=== PATIENT | female | born 1960 | race Two or more races ===

== ENCOUNTER 2022-02-05 07:25 | Inpatient (IN) | payer BC ==
[2022-01-29 16:22] LABS: BASOPHILS # (AUTO) 0.1 X10'3 (0-0.2); BASOPHILS % (AUTO) 0.9 % (0-1); EOSINOPHILS # (AUTO) 0.3 X10'3 (0-0.9); EOSINOPHILS % (AUTO) 5.7 % (0-6); LYMPHOCYTES # (AUTO) 0.7 X10'3 (1.1-4.8); LYMPHOCYTES % (AUTO) 12.4 % (21-51); MEAN CORPUSCULAR HEMOGLOBIN 34.4 PG (27.0-31.0); MEAN CORPUSCULAR HGB CONC 35.2 g/dL (33.0-36.5); MEAN CORPUSCULAR VOLUME 97.7 FL (78-98); MEAN PLATELET VOLUME 7.7 FL (7.4-10.4); MONOCYTES # (AUTO) 0.4 X10'3 (0-0.9); MONOCYTES % (AUTO) 7.3 % (2-12); NEUTROPHILS # (AUTO) 4.2 X10'3 (1.8-7.7); NEUTROPHILS % (AUTO) 73.7 % (42-75); PRE OP HEMATOCRIT 34.1 % (35.0-45.0); PRE OP PLATELET COUNT 225 X10'3 (140-440); RED BLOOD COUNT 3.49 X10'6 (4.20-5.60); RED CELL DISTRIBUTION WIDTH 14.7 % (11.5-14.5)
[2022-01-29 16:33] LABS: ALBUMIN 4.2 G/DL (3.4-5.0); ALBUMIN/GLOBULIN RATIO 1.3 (1.1-1.5); ALKALINE PHOSPHATASE 77 IU/L (46-116); BLOOD UREA NITROGEN 19 MG/DL (7-18); BUN/CREATININE RATIO 27.5 (6.6-38.0); CALCIUM 9.5 MG/DL (8.5-10.1); CHLORIDE 101 MMOL/L (99-107); CREATININE 0.69 MG/DL (0.40-0.90); PRE OP ALT 27 U/L (30-65); PRE OP ANION GAP 10 (8-16); PRE OP AST 34 U/L (10-37); PRE OP BILIRUB, TOTAL 0.4 MG/DL (0.0-1.0); PRE OP GLUCOSE 92 MG/DL (70-104); PRE OP POTASSIUM 4.1 MMOL/L (3.4-5.1); PRE OP SODIUM 137 MMOL/L (135-145); TOTAL CARBON DIOXIDE 25.7 MMOL/L (24-32); TOTAL PROTEIN 7.4 G/DL (6.4-8.2); eGFR 86 ML/MIN
[2022-01-29 16:48] LABS: HEMOGLOBIN A1C 5.8 % (4.5-6.2)
[2022-02-05] VITALS (23 sets, daily range): BP systolic 109–161; BP diastolic 55–81
[~2022-02-05] VITALS: Ht 157.5 cm; Wt 64.0 kg
[~2022-02-05 07:25] MED LIST: ALBU6.7H9 INH; ATOR40TA71 PO; FLUT1DIS20 INH; METF-436 PO; ceFOXitin 2GM-NS 100mL ADDvant 100 ML IV ONE; famotidine 20mg tablet PO ONE; heparin, porcine 5000 units/ml vial SQ ONE; metroNIDAZOLE-Flagyl 500mg/NS 100ML IVPB IV STA; ringers solution, lacted 1,000 ML IV SCH
[2022-02-05] MEDS ORDERED: insulin regular, human U-100 3ml vial - multi-dose SQ ONE (09:05)
[2022-02-05] MEDS ORDERED: insulin regular, human U-100 3ml vial - multi-dose IV ONE (09:05)
[2022-02-05] MEDS ORDERED: LIDOcaine 1% W/epiNEPHrine 1:100,000 20ml vial ONE (09:17)
[2022-02-05] MEDS ORDERED: BUPIVAcaine 0.5% inj/PF 30 ML ONE (09:17)
[2022-02-05] MEDS ORDERED: tobramycin 40mg/ml inj ONE (09:17)
[2022-02-05] MEDS ORDERED: povidone-iodine 10% ointment 1 APPLIC APPLIC TP ONE (09:17)
[2022-02-05] MEDS ORDERED: LIDOcaine 1% (10mg/ml)w/preservative inj. 20ml MDV ONE (09:38)
[2022-02-05] MEDS ORDERED: sevoflurane 250ml liquid IH ONE (09:38)
[2022-02-05] MEDS ORDERED: midazolam 1 mg/ML 2ml injection ONE (09:41)
[2022-02-05] MEDS ORDERED: fentaNYL /PF 50mcg/ml 5ml ampule ONE (09:42)
[2022-02-05] MEDS ORDERED: INDOCYANINE GREEN 25 MG/10 ML VIAL IV ONE (11:26)
[2022-02-05] MEDS ORDERED: BUPIVAcaine 0.5% inj/PF 30 ml vial IJ ONE (11:44)
[2022-02-05] MEDS ORDERED: labetalol 20mg/4ml (5mg/ml) syringe IV PRN (12:00)
[2022-02-05] MEDS ORDERED: acetaminophen 1,000mg/100ml IV 100 ML IV PRN (12:00)
[2022-02-05] MEDS ORDERED: hydrALAZINE 20mg/ml inj. IV PRN ×2 (12:00→16:15)
[2022-02-05] MEDS ORDERED: proCHLORperazine 10 MG/2 ml inj IV PRN (12:00)
[2022-02-05] MEDS ORDERED: meperidine/PF 25mg/ml syringe IV PRN ×3 (12:00)
[2022-02-05] MEDS ORDERED: morphine 2 MG/ML inj. syringe IV PRN (12:00)
[2022-02-05] MEDS ORDERED: ringers solution, lacted 1,000 ML IV SCH (12:00)
[2022-02-05] MEDS ORDERED: ondansetron/PF 4mg/2ml inj IV PRN ×2 (12:00→14:50)
[2022-02-05] MEDS ORDERED: morphine 4 MG/ML inj SYRINge IV PRN (12:00)
[2022-02-05] MEDS ORDERED: ondansetron/PF 4mg/2ml inj ONE (12:24)
[2022-02-05] MEDS ORDERED: dexamethasone sod phosphate 4mg/ml inj. ONE (12:24)
[2022-02-05] MEDS ORDERED: rocuronium 10mg/ml inj IV ONE ×2 (12:24)
[2022-02-05] MEDS ORDERED: propofol inj 20 ML IV ONE (12:24)
[2022-02-05] MEDS ORDERED: morphine 10mg/ml inj. ONE (14:17)
[2022-02-05] MEDS ORDERED: sugammadex 200mg/2ml injection IV ONE (14:18)
--- NOTE | 2022-02-05 14:41 | NUR ---
Received from OR via HOSPITAL BED, accompanied by Anesthesiologist DR. BARAJAS and report given by Anesthesiolgist. PATIENT HAS ORAL ARIWAY IN WITH 10L MASK O2. SYSTOLIC 161, MD AWARE. PATIENT BRADYPNEA WITH ORAL AIRWAY IN, SATURATIONS 100%. NONVERBAL 0/10 PAIN. ILEOSOTMY AND MANNY'S VISUALIZED WITH NURSE. NO ISSUES NOTED.20G PIV TO LEFT AC WITH LR RUNNING AT 100, ASKED TO BE DECREASED BY DR. PEREZ TO 75ML/HR.
--- NOTE | 2022-02-05 14:45 | NUR ---
ORAL AIRWAY REMOVED
[2022-02-05] MEDS ORDERED: DEXTROSE 15 GM of carb/4 tabs (each vial/BOTTLE has 4 tablets) PO PRN ×2 (14:50)
[2022-02-05] MEDS ORDERED: naloxone 0.4 mg/ml inj IV PRN ×3 (14:50→15:00)
[2022-02-05] MEDS ORDERED: dextrose 50%-water 50ml dispensing syringe IV PRN ×2 (14:50)
[2022-02-05] MEDS ORDERED: insulin Lispro (HumaLOG) vial - multi-dose SQ SCH (14:50)
[2022-02-05] MEDS ORDERED: glucagon, human recombinant 1mg kit SUBCUT PRN (14:50)
[2022-02-05] MEDS ORDERED: MESSAGE TO PHARMACY PO ONE (14:50)
[2022-02-05] MEDS ORDERED: normal saline 1000ml 1,000 ML IV SCH (15:00)
[2022-02-05] MEDS ORDERED: morphine/NS PCA 1mg/ml 50ml 50 ML IV SCH (15:00)
[2022-02-05] MEDS: morphine/NS PCA 1mg/ml 50ml 50 ML IV SCH ×4 (16:15→23:00)
[2022-02-05] MEDS ORDERED: albuterol 2.5 MG/3 ML nebule NEB PRN (16:20)
[2022-02-05] MEDS ORDERED: ipratropium/albuterol 3ml nebule NEB PRN (16:20)
--- NOTE | 2022-02-05 16:25 | NUR ---
REPORT GIVEN TO VESNA RN, RECEIVING NURSE
--- NOTE | 2022-02-05 16:27 | NUR ---
Received report from Georgie in Recovery and had the opportunity to ask questions. Patient will be brought to the floor shortly.
[2022-02-05] MEDS: albuterol 2.5 MG/3 ML nebule NEB SCH ×2 (16:29→20:21)
--- NOTE | 2022-02-05 16:41 | NUR ---
PATIENT STATES 5/10 PAIN BUT COMFORTABLE, HAS MORPHINE PUMP RUNNING AT 1MG DEMAND DOSE ONLY Q10MIN. MANNY DRAINS AND ILEOSTOMY VISUALIZED WITH NURSE. 2L NC ATTACHED TO WALL. DENIES NAUSEA, TOLERATING CLEAR LIQUIDS. SLEEPY BUT RESPONDS TO VERBAL STIMULI. PATIENT TRANSFERRED TO ROOM 4024B. , JIM, AT BEDSIDE STATES SHE HAS NO BELONGINGS IN THE HOSPITAL, HE TOOK THEM HOME.
[2022-02-05] MEDS ORDERED: morphine/NS 1 mg/ml 50ml CADD 50 ML IV SCH (17:00)
--- NOTE | 2022-02-05 17:43 | NUR ---
Antibiotics that were due at 1600 not on the floor yet. (Patient did not come to the floor until 1705). Called pharmacy and they will bring them up shortly.
--- NOTE | 2022-02-05 18:37 | NUR ---
Problems reprioritized. Patient report given, questions answered & plan of care reviewed with GABBY Qureshi.
[2022-02-05] MEDS: potassium CL 20mEq in D5-1/2NS 1,000 ML IV SCH (18:48)
[2022-02-05] MEDS: metroNIDAZOLE-Flagyl 500mg/NS 100 ML IV SCH (18:49)
[2022-02-05] MEDS: ceFOXitin inj 1,000 MG in normal saline 100ml IV soln 100 ML IV SCH (20:40)
[2022-02-05] MEDS: heparin, porcine 5000 units/ml vial SQ SCH (20:42)
[2022-02-06] MEDS: metroNIDAZOLE-Flagyl 500mg/NS 100 ML IV SCH ×3 (00:09→15:33)
[2022-02-06] MEDS: ceFOXitin inj 1,000 MG in normal saline 100ml IV soln 100 ML IV SCH (00:09)
[2022-02-06] MEDS: morphine/NS PCA 1mg/ml 50ml 50 ML IV SCH ×12 (01:00→23:00)
[2022-02-06 02:00] VITALS: BP 109/52
[2022-02-06] MEDS: potassium CL 20mEq in D5-1/2NS 1,000 ML IV SCH ×2 (04:10→12:15)
--- NOTE | 2022-02-06 05:35 | NUR ---
FC removed with no issues. placed patient in sitting position. She is feeling gassy/bloated. explained that she needs to get up and walk as much as possible to clear this up. Ivy, GABBY relief nurse will walk patient this morning before AM shift arrives.
--- NOTE | 2022-02-06 06:00 | NUR ---
Attempted to ambulate patient per pt's RN request but pt. experiencing dizziness at this time. Reported concern to Kiera rubio RN. Addendum: 02/06/22 at 0622 by Ivy Enamorado RN Amended: Links added.
--- NOTE | 2022-02-06 06:03 | NUR ---
Problems reprioritized. Patient report given, questions answered & plan of care reviewed with GABBY Moore.
[2022-02-06 06:18] LABS: BASOPHILS % (AUTO) 0.1 % (0-1); EOSINOPHILS % (AUTO) 0.1 % (0-6); HEMATOCRIT 32.5 % (35.0-45.0); HEMOGLOBIN 11.1 g/dl (12.0-16.0); LYMPHOCYTES # (AUTO) 0.4 X10'3 (1.1-4.8); LYMPHOCYTES % (AUTO) 5.7 % (21-51); MEAN CORPUSCULAR HEMOGLOBIN 34.1 PG (27.0-31.0); MEAN CORPUSCULAR HGB CONC 34.3 g/dL (33.0-36.5); MEAN CORPUSCULAR VOLUME 99.4 FL (78-98); MEAN PLATELET VOLUME 7.9 FL (7.4-10.4); MONOCYTES # (AUTO) 0.5 X10'3 (0-0.9); MONOCYTES % (AUTO) 7.4 % (2-12); NEUTROPHILS # (AUTO) 5.8 X10'3 (1.8-7.7); NEUTROPHILS % (AUTO) 86.7 % (42-75); PLATELET COUNT 212 X10'3 (140-440); RED BLOOD COUNT 3.27 X10'6 (4.20-5.60); RED CELL DISTRIBUTION WIDTH 14.2 % (11.5-14.5); WHITE BLOOD COUNT 6.7 X10'3 (4.5-11.0)
[2022-02-06 06:21] LABS: ALBUMIN 3.2 G/DL (3.4-5.0); ANION GAP 8 (8-16); BLOOD UREA NITROGEN 6 MG/DL (7-18); BUN/CREATININE RATIO 10.7 (6.6-38.0); CALCIUM 8.2 MG/DL (8.5-10.1); CHLORIDE 105 MMOL/L (99-107); CREATININE 0.56 MG/DL (0.40-0.90); GLUCOSE 148 MG/DL (70-104); POTASSIUM 3.7 MMOL/L (3.5-5.1); SODIUM 142 MMOL/L (135-145); TOTAL CARBON DIOXIDE 29.1 MMOL/L (24-32); eGFR > 90 ML/MIN
--- NOTE | 2022-02-06 06:38 | NUR ---
Patient in room ORTHO 4024. I have received report from GABBY Qureshi and had the opportunity to ask questions and assume patient care.
[2022-02-06 07:04] VITALS: BP 106/51
[2022-02-06] MEDS: heparin, porcine 5000 units/ml vial SQ SCH ×2 (07:11→20:03)
[2022-02-06] MEDS: albuterol 2.5 MG/3 ML nebule NEB SCH ×4 (07:44→20:38)
[2022-02-06] MEDS: atorvastatin 20mg tablet PO SCH (08:13)
[2022-02-06] MEDS: budesonide 0.5mg/2ml UD nebule IH SCH ×2 (10:10→20:38)
[2022-02-06] MEDS: acetaminophen 1,000mg/100ml IV 100 ML IV SCH ×2 (14:54→20:03)
--- NOTE | 2022-02-06 15:07 | NUR ---
Dr. Denise notified regarding patient has not voided s/p dc of amezquita catheter. Received orders to straight cath if bladder scan shows more than 500ml. Bladder scan shows 359ml and patient denies pain or discomfort or urge to void. Will continue to monitor.
--- NOTE | 2022-02-06 15:55 | NUR ---
[facility] assessment for 61 year old female pt admitted post operatively s/p LAR w/ anastomosis, diverting ileostomy and appendectomy for rectal cancer. Arrived in room pt is sleepy, she agrees to have receive education on ostomy care. is Kinyarwanda speaking nad is fluent in Luxem[place]ish. She has stoma to her RLQ measures 38mm outside of bag, color is dark pink, moist os centered and there is small green liquid effluent in pouch and noted to have some air which was released and demonstrated to spouse on how to do. She has 2 MANNY drains to R abdomen and lap sites. Skin otherwise intact. Education w/ demonstration and handouts with on ostomy supplies, how to empty, clean, open to proper size, and he demonstrated how to place an ostomy pouch on teaching stoma. Provided him with handouts on ileostomy care, to go kit list and rationale as well as how/when to use stoma powder for crusting as well as frequency of changes. Also will fax [employer] secure start form. with return verbal and demonstration. Will see her again on Wednesday if still in house for continued education and change of pouch. Addendum: 02/06/22 at 1558 by Gabbi Whitfield RN Amended: Links added.
--- NOTE | 2022-02-06 15:59 | NUR ---
Patient still no void and denies bladder pain or discomfort of urge to void. Bladder scan shows 450ml. Will continue to monitor.
[2022-02-06] MEDS: ketorolac tromethamine 15mg/ml inj. IV PRN (16:44)
--- NOTE | 2022-02-06 17:00 | NUR ---
Patient c/o bladder pain and discomfort and unable to void. 987ml on bladder scan. Patient was unable to void. Straight cath as ordered. Return 900ml of clear yellow urine then clamped off 5mins and unclamped again and 300ml more of urine drained for a total of 1200ml straight cath. Patient stated felt immediate pain and discomfort relief. Patient tolerated well.
--- NOTE | 2022-02-06 17:30 | NUR ---
PAGER ID: [phone] MESSAGE: [id number]- Nery Whiting- c/o indigestion. ok to order Maalox? Also c/o congestion, runny nose and normally takes allergy pill but cannot remember name or dose. - Adrian [phone]
[2022-02-06 18:00] VITALS: BP 117/43
[2022-02-06] MEDS ORDERED: mag hydrox/Alum hydrox/simeth 30ml oral suspension PO PRN (18:00)
[2022-02-06] MEDS: PCA WASTE DOCUMENTATION MC SCH (18:09)
--- NOTE | 2022-02-06 18:11 | NUR ---
Problems reprioritized. Patient report given, questions answered & plan of care reviewed with GABBY Qureshi.
[2022-02-06] MEDS: cetirizine 10mg tablet PO SCH (20:03)
--- NOTE | 2022-02-06 21:33 | NUR ---
called night hospitalist to ask to dc fluids containing D5, he ordered to cut rate in half. Addendum: 02/06/22 at 2135 by Kiera Salas RN because patient is not eating and her BS continues to increase.
[2022-02-06 22:00] VITALS: BP 101/44
[2022-02-07] MEDS: morphine/NS PCA 1mg/ml 50ml 50 ML IV SCH ×6 (01:00→11:00)
[2022-02-07] MEDS: acetaminophen 1,000mg/100ml IV 100 ML IV SCH ×2 (02:20→10:17)
[2022-02-07] MEDS: potassium CL 20mEq in D5-1/2NS 1,000 ML IV SCH (02:24)
[2022-02-07 05:57] LABS: BASOPHILS % (AUTO) 0.3 % (0-1); EOSINOPHILS # (AUTO) 0.3 X10'3 (0-0.9); EOSINOPHILS % (AUTO) 4.4 % (0-6); HEMATOCRIT 30.5 % (35.0-45.0); HEMOGLOBIN 10.5 g/dl (12.0-16.0); LYMPHOCYTES # (AUTO) 0.4 X10'3 (1.1-4.8); MEAN CORPUSCULAR HEMOGLOBIN 33.7 PG (27.0-31.0); MEAN CORPUSCULAR HGB CONC 34.4 g/dL (33.0-36.5); MEAN CORPUSCULAR VOLUME 98.1 FL (78-98); MEAN PLATELET VOLUME 8.4 FL (7.4-10.4); MONOCYTES # (AUTO) 0.4 X10'3 (0-0.9); MONOCYTES % (AUTO) 6.6 % (2-12); NEUTROPHILS # (AUTO) 4.8 X10'3 (1.8-7.7); NEUTROPHILS % (AUTO) 81.7 % (42-75); PLATELET COUNT 198 X10'3 (140-440); RED BLOOD COUNT 3.11 X10'6 (4.20-5.60); RED CELL DISTRIBUTION WIDTH 14.3 % (11.5-14.5); WHITE BLOOD COUNT 5.9 X10'3 (4.5-11.0)
--- NOTE | 2022-02-07 06:00 | NUR ---
Problems reprioritized. Patient report given, questions answered & plan of care reviewed with GABBY Moore.
[2022-02-07 06:11] LABS: ALBUMIN 2.8 G/DL (3.4-5.0); ANION GAP 5 (8-16); BLOOD UREA NITROGEN 4 MG/DL (7-18); BUN/CREATININE RATIO 6.3 (6.6-38.0); CALCIUM 8.2 MG/DL (8.5-10.1); CHLORIDE 108 MMOL/L (99-107); CREATININE 0.64 MG/DL (0.40-0.90); GLUCOSE 128 MG/DL (70-104); POTASSIUM 3.5 MMOL/L (3.5-5.1); SODIUM 142 MMOL/L (135-145); TOTAL CARBON DIOXIDE 28.9 MMOL/L (24-32); eGFR > 90 ML/MIN
--- NOTE | 2022-02-07 06:23 | NUR ---
Patient in room ORTHO 4024. I have received report from GABBY Qureshi and had the opportunity to ask questions and assume patient care.
[2022-02-07 06:40] VITALS: BP 102/36
[2022-02-07] MEDS: cetirizine 10mg tablet PO SCH (07:18)
[2022-02-07] MEDS: atorvastatin 20mg tablet PO SCH (07:19)
[2022-02-07] MEDS: heparin, porcine 5000 units/ml vial SQ SCH ×2 (07:19→20:05)
[2022-02-07] MEDS: budesonide 0.5mg/2ml UD nebule IH SCH ×2 (07:41→20:43)
[2022-02-07] MEDS: albuterol 2.5 MG/3 ML nebule NEB SCH ×4 (07:41→20:43)
[2022-02-07 11:14] VITALS: BP 94/37
[2022-02-07] MEDS: ketorolac tromethamine 15mg/ml inj. IV PRN (13:59)
[2022-02-07] MEDS: PCA WASTE DOCUMENTATION MC SCH (14:39)
[2022-02-07 18:00] VITALS: BP 89/48
--- NOTE | 2022-02-07 18:11 | NUR ---
Problems reprioritized. Patient report given, questions answered & plan of care reviewed with GABBY Qureshi.
[2022-02-07] MEDS: HYDROcodone/acetaminophen 5mg/325mg tablet PO PRN (20:40)
[2022-02-07 22:00] VITALS: BP 119/59
[2022-02-08] MEDS: HYDROcodone/acetaminophen 5mg/325mg tablet PO PRN ×2 (02:18→11:13)
[2022-02-08 06:08] LABS: BASOPHILS % (AUTO) 0.3 % (0-1); EOSINOPHILS # (AUTO) 0.4 X10'3 (0-0.9); EOSINOPHILS % (AUTO) 8.5 % (0-6); HEMOGLOBIN 11.2 g/dl (12.0-16.0); LYMPHOCYTES # (AUTO) 0.4 X10'3 (1.1-4.8); LYMPHOCYTES % (AUTO) 7.6 % (21-51); MEAN CORPUSCULAR HEMOGLOBIN 33.8 PG (27.0-31.0); MEAN CORPUSCULAR VOLUME 99.2 FL (78-98); MEAN PLATELET VOLUME 8.2 FL (7.4-10.4); MONOCYTES # (AUTO) 0.3 X10'3 (0-0.9); MONOCYTES % (AUTO) 6.5 % (2-12); NEUTROPHILS % (AUTO) 77.1 % (42-75); PLATELET COUNT 210 X10'3 (140-440); RED BLOOD COUNT 3.33 X10'6 (4.20-5.60); RED CELL DISTRIBUTION WIDTH 13.9 % (11.5-14.5); WHITE BLOOD COUNT 5.2 X10'3 (4.5-11.0)
[2022-02-08 06:18] LABS: ANION GAP 9 (8-16); BLOOD UREA NITROGEN 5 MG/DL (7-18); CALCIUM 8.7 MG/DL (8.5-10.1); CHLORIDE 110 MMOL/L (99-107); GLUCOSE 127 MG/DL (70-104); POTASSIUM 3.6 MMOL/L (3.5-5.1); SODIUM 146 MMOL/L (135-145); TOTAL CARBON DIOXIDE 26.8 MMOL/L (24-32); eGFR > 90 ML/MIN
--- NOTE | 2022-02-08 06:21 | NUR ---
Problems reprioritized. Patient report given, questions answered & plan of care reviewed with GABBY Kulkarni.
[2022-02-08 06:35] VITALS: BP 102/46
[2022-02-08] MEDS: budesonide 0.5mg/2ml UD nebule IH SCH (08:30)
[2022-02-08] MEDS: albuterol 2.5 MG/3 ML nebule NEB SCH (08:30)
[2022-02-08] MEDS: cetirizine 10mg tablet PO SCH (08:57)
[2022-02-08] MEDS: atorvastatin 20mg tablet PO SCH (08:57)
[2022-02-08] MEDS: heparin, porcine 5000 units/ml vial SQ SCH (08:58)
[2022-02-08] MEDS ORDERED: HYDR-3964 PO ×3 (10:49→12:34)
--- NOTE | 2022-02-08 12:07 | NUR ---
Patient discharged to home via wheelchair to private vehicle. This RN changed patients ileostomy bag prior to discharge and educated both spouse and daughter during process. Patient was sent with two extra bags, ostomy powder and paste and canisters for emptying. All discharge instructions given to patient and spouse and daughter which included all ostomy care, follow up and low fiber diet. Education given on ostomy care and low fiber diet. Patient and family members expressed understanding of all instructions given to them. 20 gauge iv removed from left ac cannula intact no s/s of phlebitis.
--- NOTE | 2022-02-08 12:23 | NUR ---
PAGER ID: [phone] MESSAGE: [phone], Johanne daughter just went to pharmacy ([facility] to [facility] and they are closed. Is there any way it can get sent to [facility] in [place]? rae [phone]
== END 2022-02-08 12:07 | disposition home health service (06) | DRG 330 ==
LOC: PAS IN 07:25 → ORTHO 4S 17:00
PROVIDERS: ADMIT Colon & Rectal Surgery; ATTEND Colon & Rectal Surgery
PROC: 0DTN4ZZ Resection of Sigmoid Colon, Percutaneous Endoscopic Approach (ICD-10-PCS; 2022-02-05)
PROC: 0DTJ4ZZ Resection of Appendix, Percutaneous Endoscopic Approach (ICD-10-PCS; 2022-02-05)
PROC: 0D1B4Z4 Bypass Ileum to Cutaneous, Percutaneous Endoscopic Approach (ICD-10-PCS; 2022-02-05)
PROC: 0DTP4ZZ Resection of Rectum, Percutaneous Endoscopic Approach (ICD-10-PCS; principal; 2022-02-05 09:38)
DX: C20 Malignant neoplasm of rectum (principal); E87.0 Hyperosmolality and hypernatremia; E11.9 Type 2 diabetes mellitus without complications; E78.5 Hyperlipidemia, unspecified; E78.00 Pure hypercholesterolemia, unspecified; D64.9 Anemia, unspecified; I10 Essential (primary) hypertension; J45.909 Unspecified asthma, uncomplicated; Z79.51 Long term (current) use of inhaled steroids; Z79.84 Long term (current) use of oral hypoglycemic drugs; Z83.3 Family history of diabetes mellitus; Z90.710 Acquired absence of both cervix and uterus; Z88.8 Allergy status to other drugs, medicaments and biological substances; Z79.899 Other long term (current) drug therapy
CPT/HCPCS: Z7506; Z7508; 36415; 71046; 80048; 80053; 82948; 83036; 85025; 86885; 86900; 86901; 87081; 93005; 94640; 94760; A4355; A4357; A4371; A4402; A4421; A4615; A4618; A6258; A6402; A6449; A7000; C1758; G0378; J0131; J0694; J1100; J1644; J1815; J1885; J2175; J2250; J2270; J2274; J2405; J2704; J3010; J3260; J3480; J3490; J7120; S0020

== ENCOUNTER 2022-07-06 05:43 | Inpatient (IN) | payer BC ==
[2022-07-01 11:31] LABS: MEAN PLATELET VOLUME 7.1 FL (7.4-10.4); PRE OP PLATELET COUNT 263 X10'3 (140-440)
[2022-07-01 11:32] LABS: BASOPHILS % (AUTO) 0.8 % (0-1); EOSINOPHILS # (AUTO) 0.3 X10'3 (0-0.9); LYMPHOCYTES # (AUTO) 0.5 X10'3 (1.1-4.8); LYMPHOCYTES % (AUTO) 8.9 % (21-51); MEAN CORPUSCULAR HEMOGLOBIN 35.7 PG (27.0-31.0); MEAN CORPUSCULAR HGB CONC 34.4 g/dL (33.0-36.5); MEAN CORPUSCULAR VOLUME 103.8 FL (78-98); MONOCYTES # (AUTO) 0.3 X10'3 (0-0.9); NEUTROPHILS # (AUTO) 4.5 X10'3 (1.8-7.7); NEUTROPHILS % (AUTO) 79.3 % (42-75); PRE OP HEMATOCRIT 31.5 % (35.0-45.0); RED BLOOD COUNT 3.04 X10'6 (4.20-5.60)
[2022-07-01 11:43] LABS: ALBUMIN 4.2 G/DL (3.4-5.0); ALBUMIN/GLOBULIN RATIO 1.2 (1.1-1.5); ALKALINE PHOSPHATASE 72 IU/L (46-116); BLOOD UREA NITROGEN 20 MG/DL (7-18); BUN/CREATININE RATIO 19.2 (6.6-38.0); CALCIUM 10.2 MG/DL (8.5-10.1); CHLORIDE 107 MMOL/L (99-107); CREATININE 1.04 MG/DL (0.40-0.90); PRE OP ALT 22 U/L (30-65); PRE OP ANION GAP 8 (8-16); PRE OP AST 21 U/L (10-37); PRE OP BILIRUB, TOTAL 0.4 MG/DL (0.0-1.0); PRE OP GLUCOSE 101 MG/DL (70-104); PRE OP POTASSIUM 3.7 MMOL/L (3.4-5.1); PRE OP SODIUM 141 MMOL/L (135-145); TOTAL CARBON DIOXIDE 26.4 MMOL/L (24-32); TOTAL PROTEIN 7.7 G/DL (6.4-8.2); eGFR 54 ML/MIN
[2022-07-01 11:47] LABS: PRE OP HEMOGLOBIN 10.8 g/dL (12.0-16.0)
[2022-07-06] VITALS (28 sets, daily range): BP systolic 92–166; BP diastolic 45–83
[~2022-07-06] VITALS: Ht 165.1 cm; Wt 56.2 kg
[~2022-07-06 05:43] MED LIST changes: +ALBU6.7H14 INH; -ALBU6.7H9 INH; -FLUT1DIS20 INH; +FLUT1DIS20 PO; +MALTODEXTRIN/FRUCTOSE 0.68 KCAL/ML LIQUID 296ML BOTTLE PO ONE; -METF-436 PO; +METF-438 PO; +metroNIDAZOLE-Flagyl 500mg/NS 100ML IVPB IV ONE; -metroNIDAZOLE-Flagyl 500mg/NS 100ML IVPB IV STA
[2022-07-06] MEDS ORDERED: LIDOCAINE 1%/EPI 1:100,000 inj. 10 ML multi-dose vial ONE ×2 (06:48→08:01)
[2022-07-06] MEDS ORDERED: BUPIVAcaine/PF 2.5mg/ml (0.25%) 10ml vial ONE (06:49)
[2022-07-06] MEDS ORDERED: tobramycin 40mg/ml inj ONE (06:59)
[2022-07-06] MEDS ORDERED: BUPIVAcaine/PF 2.5 mg/ml (0.25%) 30ml vial ONE (07:12)
[2022-07-06] MEDS ORDERED: labetalol 20mg/4ml (5mg/ml) syringe IV PRN (07:20)
[2022-07-06] MEDS ORDERED: ondansetron/PF 4mg/2ml inj IV PRN ×2 (07:20→09:40)
[2022-07-06] MEDS ORDERED: ringers solution, lacted 1,000 ML IV SCH (07:20)
[2022-07-06] MEDS ORDERED: hydrALAZINE 20mg/ml inj. IV PRN (07:20)
[2022-07-06] MEDS ORDERED: morphine 4 MG/ML inj SYRINge IV PRN (07:20)
[2022-07-06] MEDS ORDERED: morphine 2 MG/ML inj. syringe IV PRN (07:20)
[2022-07-06] MEDS ORDERED: fentaNYL/PF 50MCG/1 ML 2ML syringe IV PRN (07:20)
[2022-07-06] MEDS ORDERED: midazolam 1 mg/ML 2ml injection ONE (07:28)
[2022-07-06] MEDS ORDERED: fentaNYL/PF 50MCG/1 ML 2ML syringe ONE (07:28)
[2022-07-06] MEDS ORDERED: propofol inj 20 ML IV ONE (07:29)
[2022-07-06] MEDS ORDERED: glycopyrrolate 0.2mg/ml inj ONE (07:29)
[2022-07-06] MEDS ORDERED: LIDOcaine 2% (20mg/ml) 5ml vial ONE (07:29)
[2022-07-06] MEDS ORDERED: ondansetron/PF 4mg/2ml inj ONE (07:29)
[2022-07-06] MEDS ORDERED: rocuronium 10mg/ml inj IV ONE (07:29)
--- NOTE | 2022-07-06 09:34 | NUR ---
Received from OR via BED, accompanied by Anesthesiologist DR MEREDITH and report given by Anesthesiologist AND MANAGER ASSURANCE. PT DROWSY, NO S/S OF DISTRESS/DISCOMFORT. ABDOMEN W/SMALL ISLAND DRSG COVERING INCISION CDI, BEARD CATHETER TO GRAVITY DRAINAGE W/CLEAR LIGHT YELLOW URINE IN DRAINAGE BAG. Addendum: 07/06/22 at 1017 by Jennifer Conner RN Amended: Links added.
[2022-07-06] MEDS ORDERED: HYDROcodone/acetaminophen 5mg/325mg tablet PO PRN (09:40)
[2022-07-06] MEDS: potassium CL 20mEq in D5-1/2NS 1,000 ML IV SCH ×2 (09:40→21:13)
[2022-07-06] MEDS ORDERED: MESSAGE TO PHARMACY PO ONE (09:40)
[2022-07-06] MEDS ORDERED: glucagon, human recombinant 1mg kit SUBCUT PRN (09:40)
[2022-07-06] MEDS ORDERED: dextrose 50%-water 50ml dispensing syringe IV PRN ×2 (09:40)
[2022-07-06] MEDS ORDERED: insulin Lispro (HumaLOG) vial - multi-dose SQ SCH (09:40)
[2022-07-06] MEDS ORDERED: naloxone 0.4 mg/ml inj IV PRN (09:40)
[2022-07-06] MEDS ORDERED: DEXTROSE 15 GM of carb/4 tabs (each vial/BOTTLE has 4 tablets) PO PRN ×2 (09:40)
[2022-07-06] MEDS ORDERED: albuterol 2.5 MG/3 ML nebule NEB PRN (10:05)
[2022-07-06] MEDS: fentaNYL/PF 50MCG/1 ML 2ML syringe IV PRN ×2 (10:42→10:50)
--- NOTE | 2022-07-06 11:54 | NUR ---
Report called to receiving nurse, PT REMAINS COMFORTABLE. Transferred via BED, NO Belongings, EMERGENCY CARE ATTENDANT AT BEDSIDE TO RECEIVE PT, BLL, CALL LIGHT GIVEN, SIDE RAILS UP X 2, PTS AND SISTER NOTIFIED OF PTS TRANSFER TO ROOM. Special Issues communicated to receiving nurse. YES. Addendum: 07/06/22 at 1209 by Jennifer Conner RN Amended: Links added.
--- NOTE | 2022-07-06 12:30 | NUR ---
Patient arrived on floor settled in room and educated on how to use call light.
[2022-07-06] MEDS: morphine 2 MG/ML inj. syringe IV PRN ×3 (13:47→21:17)
[2022-07-06] MEDS ORDERED: ceFOXitin 1 GM/D5W 50mL IVPB 100 ML IV SCH (16:00)
[2022-07-06] MEDS: ceFOXitin inj 1,000 MG in normal saline 100ml IV soln 100 ML IV SCH (16:54)
[2022-07-06] MEDS: metroNIDAZOLE-Flagyl 500mg/NS 100 ML IV SCH (17:09)
[2022-07-06] MEDS ORDERED: metFORMIN 500mg tablet PO SCH (17:30)
--- NOTE | 2022-07-06 18:00 | NUR ---
Assumed care from Kathy Benson.
--- NOTE | 2022-07-06 18:28 | NUR ---
Problems reprioritized. Patient report given, questions answered & plan of care reviewed with Rita PIERRE.
[2022-07-06] MEDS: albuterol 2.5 MG/3 ML nebule NEB SCH (19:11)
[2022-07-06] MEDS: budesonide 0.5mg/2ml UD nebule IH SCH (19:11)
[2022-07-06] MEDS: atorvastatin 20mg tablet PO SCH (21:00)
[2022-07-06] MEDS: insulin glargine (Lantus) pen - multi-dose SQ SCH (21:00)
[2022-07-06] MEDS: heparin, porcine 5000 units/ml vial SQ SCH (21:16)
[2022-07-07] MEDS: metroNIDAZOLE-Flagyl 500mg/NS 100 ML IV SCH ×3 (00:25→16:54)
[2022-07-07] MEDS: potassium CL 20mEq in D5-1/2NS 1,000 ML IV SCH ×3 (01:40→22:14)
[2022-07-07] MEDS: ceFOXitin inj 1,000 MG in normal saline 100ml IV soln 100 ML IV SCH (02:10)
[2022-07-07] MEDS: acetaminophen 325mg tablet PO PRN (02:52)
--- NOTE | 2022-07-07 06:14 | NUR ---
Report to Kathy Benson.
[2022-07-07 06:48] LABS: BASOPHILS % (AUTO) 0.6 % (0-1); EOSINOPHILS # (AUTO) 0.1 X10'3 (0-0.9); EOSINOPHILS % (AUTO) 1.9 % (0-6); HEMATOCRIT 26.1 % (35.0-45.0); HEMOGLOBIN 9.1 g/dl (12.0-16.0); LYMPHOCYTES # (AUTO) 0.4 X10'3 (1.1-4.8); LYMPHOCYTES % (AUTO) 8.5 % (21-51); MEAN CORPUSCULAR HEMOGLOBIN 36.2 PG (27.0-31.0); MEAN CORPUSCULAR VOLUME 103.5 FL (78-98); MONOCYTES # (AUTO) 0.3 X10'3 (0-0.9); MONOCYTES % (AUTO) 8.1 % (2-12); NEUTROPHILS # (AUTO) 3.3 X10'3 (1.8-7.7); NEUTROPHILS % (AUTO) 80.9 % (42-75); PLATELET COUNT 216 X10'3 (140-440); RED BLOOD COUNT 2.52 X10'6 (4.20-5.60); RED CELL DISTRIBUTION WIDTH 13.9 % (11.5-14.5); WHITE BLOOD COUNT 4.1 X10'3 (4.5-11.0)
[2022-07-07 07:00] VITALS: BP 93/44
[2022-07-07] MEDS: morphine 2 MG/ML inj. syringe IV PRN ×2 (07:13→16:54)
[2022-07-07] MEDS: heparin, porcine 5000 units/ml vial SQ SCH (07:14)
[2022-07-07 07:23] LABS: ALBUMIN 2.9 G/DL (3.4-5.0); ANION GAP 7 (8-16); BLOOD UREA NITROGEN 12 MG/DL (7-18); BUN/CREATININE RATIO 11.8 (6.6-38.0); CALCIUM 8.4 MG/DL (8.5-10.1); CHLORIDE 105 MMOL/L (99-107); CREATININE 1.02 MG/DL (0.40-0.90); GLUCOSE 163 MG/DL (70-104); POTASSIUM 3.1 MMOL/L (3.5-5.1); SODIUM 139 MMOL/L (135-145); TOTAL CARBON DIOXIDE 26.9 MMOL/L (24-32); eGFR 55 ML/MIN
[2022-07-07] MEDS: albuterol 2.5 MG/3 ML nebule NEB SCH ×2 (07:32→11:05)
[2022-07-07] MEDS: budesonide 0.5mg/2ml UD nebule IH SCH (07:33)
[2022-07-07] MEDS ORDERED: Potassium Cl inj 40 MEQ in sodium chloride 0.45% 500ml 500 ML IV ONE (10:05)
[2022-07-07 11:00] VITALS: BP 97/41
[2022-07-07] MEDS ORDERED: budesonide 0.5mg/2ml UD nebule IH PRN (11:45)
[2022-07-07] MEDS ORDERED: albuterol 2.5 MG/3 ML nebule NEB PRN (12:00)
[2022-07-07 14:37] LABS: BASOPHILS % (AUTO) 0.4 % (0-1); EOSINOPHILS # (AUTO) 0.1 X10'3 (0-0.9); EOSINOPHILS % (AUTO) 1.5 % (0-6); HEMATOCRIT 27.1 % (35.0-45.0); HEMOGLOBIN 9.1 g/dl (12.0-16.0); LYMPHOCYTES # (AUTO) 0.3 X10'3 (1.1-4.8); LYMPHOCYTES % (AUTO) 5.9 % (21-51); MEAN CORPUSCULAR HEMOGLOBIN 34.6 PG (27.0-31.0); MEAN CORPUSCULAR HGB CONC 33.6 g/dL (33.0-36.5); MEAN CORPUSCULAR VOLUME 103.1 FL (78-98); MEAN PLATELET VOLUME 7.2 FL (7.4-10.4); MONOCYTES # (AUTO) 0.3 X10'3 (0-0.9); MONOCYTES % (AUTO) 5.9 % (2-12); NEUTROPHILS # (AUTO) 4.1 X10'3 (1.8-7.7); NEUTROPHILS % (AUTO) 86.3 % (42-75); PLATELET COUNT 223 X10'3 (140-440); RED BLOOD COUNT 2.63 X10'6 (4.20-5.60); RED CELL DISTRIBUTION WIDTH 14.2 % (11.5-14.5); WHITE BLOOD COUNT 4.7 X10'3 (4.5-11.0)
--- NOTE | 2022-07-07 18:34 | NUR ---
Patient in room EMMA 358. I have received report from RADHA PIERRE and had the opportunity to ask questions and assume patient care.
--- NOTE | 2022-07-07 18:37 | NUR ---
Problems reprioritized. Patient report given, questions answered & plan of care reviewed with Prudence RN.
[2022-07-07] MEDS: atorvastatin 20mg tablet PO SCH (20:37)
[2022-07-07] MEDS: insulin glargine (Lantus) pen - multi-dose SQ SCH (20:47)
[2022-07-07] MEDS: calcium carbonate 500mg chew tablet PO PRN (22:13)
[2022-07-08] MEDS: morphine 2 MG/ML inj. syringe IV PRN (01:25)
[2022-07-08] MEDS: acetaminophen 325mg tablet PO PRN (05:38)
[2022-07-08 06:00] VITALS: BP 94/45
--- NOTE | 2022-07-08 06:37 | NUR ---
Problems reprioritized. Patient report given, questions answered & plan of care reviewed with RADHA PIERRE.
[2022-07-08 07:04] LABS: BASOPHILS % (AUTO) 0.5 % (0-1); EOSINOPHILS # (AUTO) 0.3 X10'3 (0-0.9); EOSINOPHILS % (AUTO) 6.7 % (0-6); HEMATOCRIT 26.1 % (35.0-45.0); HEMOGLOBIN 9.1 g/dl (12.0-16.0); LYMPHOCYTES # (AUTO) 0.3 X10'3 (1.1-4.8); LYMPHOCYTES % (AUTO) 7.2 % (21-51); MEAN CORPUSCULAR HEMOGLOBIN 36.1 PG (27.0-31.0); MEAN CORPUSCULAR VOLUME 103.1 FL (78-98); MEAN PLATELET VOLUME 7.4 FL (7.4-10.4); MONOCYTES # (AUTO) 0.4 X10'3 (0-0.9); MONOCYTES % (AUTO) 8.3 % (2-12); NEUTROPHILS # (AUTO) 3.5 X10'3 (1.8-7.7); NEUTROPHILS % (AUTO) 77.3 % (42-75); PLATELET COUNT 216 X10'3 (140-440); RED BLOOD COUNT 2.53 X10'6 (4.20-5.60); RED CELL DISTRIBUTION WIDTH 13.6 % (11.5-14.5); WHITE BLOOD COUNT 4.5 X10'3 (4.5-11.0)
[2022-07-08 07:16] LABS: ALBUMIN 2.8 G/DL (3.4-5.0); ANION GAP 5 (8-16); BLOOD UREA NITROGEN 6 MG/DL (7-18); BUN/CREATININE RATIO 6.6 (6.6-38.0); CALCIUM 8.6 MG/DL (8.5-10.1); CHLORIDE 108 MMOL/L (99-107); CREATININE 0.91 MG/DL (0.40-0.90); GLUCOSE 138 MG/DL (70-104); POTASSIUM 3.2 MMOL/L (3.5-5.1); SODIUM 140 MMOL/L (135-145); TOTAL CARBON DIOXIDE 27.2 MMOL/L (24-32); eGFR 63 ML/MIN
[2022-07-08 10:00] VITALS: BP 142/69
[2022-07-08] MEDS: potassium CL 20mEq in D5-1/2NS 1,000 ML IV SCH (11:27)
[2022-07-08 18:00] VITALS: BP 120/54
--- NOTE | 2022-07-08 18:15 | NUR ---
Problems reprioritized. Patient report given, questions answered & plan of care reviewed with Prudence RN.
--- NOTE | 2022-07-08 18:57 | NUR ---
Patient in room EMMA 358. I have received report from RADHA PIERRE and had the opportunity to ask questions and assume patient care.
[2022-07-08] MEDS: calcium carbonate 500mg chew tablet PO PRN (19:06)
[2022-07-08] MEDS: insulin glargine (Lantus) pen - multi-dose SQ SCH (21:00)
[2022-07-08] MEDS: atorvastatin 20mg tablet PO SCH (21:01)
[2022-07-08 22:00] VITALS: BP 114/47
[2022-07-09] MEDS: potassium CL 20mEq in D5-1/2NS 1,000 ML IV SCH ×2 (00:38→14:41)
[2022-07-09 06:00] VITALS: BP 115/63
[2022-07-09 06:41] LABS: BASOPHILS % (AUTO) 0.3 % (0-1); EOSINOPHILS # (AUTO) 0.3 X10'3 (0-0.9); EOSINOPHILS % (AUTO) 5.6 % (0-6); HEMATOCRIT 27.3 % (35.0-45.0); HEMOGLOBIN 9.7 g/dl (12.0-16.0); LYMPHOCYTES # (AUTO) 0.4 X10'3 (1.1-4.8); LYMPHOCYTES % (AUTO) 8.2 % (21-51); MEAN CORPUSCULAR HEMOGLOBIN 36.4 PG (27.0-31.0); MEAN CORPUSCULAR HGB CONC 35.3 g/dL (33.0-36.5); MEAN PLATELET VOLUME 7.3 FL (7.4-10.4); MONOCYTES # (AUTO) 0.3 X10'3 (0-0.9); MONOCYTES % (AUTO) 7.2 % (2-12); NEUTROPHILS # (AUTO) 3.6 X10'3 (1.8-7.7); NEUTROPHILS % (AUTO) 78.7 % (42-75); PLATELET COUNT 223 X10'3 (140-440); RED BLOOD COUNT 2.65 X10'6 (4.20-5.60); RED CELL DISTRIBUTION WIDTH 13.6 % (11.5-14.5); WHITE BLOOD COUNT 4.6 X10'3 (4.5-11.0)
[2022-07-09 06:50] LABS: ALBUMIN 2.9 G/DL (3.4-5.0); ANION GAP 6 (8-16); BLOOD UREA NITROGEN 4 MG/DL (7-18); BUN/CREATININE RATIO 4.9 (6.6-38.0); CALCIUM 9.1 MG/DL (8.5-10.1); CHLORIDE 107 MMOL/L (99-107); CREATININE 0.82 MG/DL (0.40-0.90); GLUCOSE 141 MG/DL (70-104); SODIUM 141 MMOL/L (135-145); TOTAL CARBON DIOXIDE 28.2 MMOL/L (24-32); eGFR 71 ML/MIN
[2022-07-09] MEDS ORDERED: potassium Cl 40MEQ/1/2NS 520ml 520 ML IV PRN (07:25)
[2022-07-09 10:53] VITALS: BP 128/61
[2022-07-09 16:01] VITALS: BP 123/76
[2022-07-09 18:00] VITALS: BP 144/61
--- NOTE | 2022-07-09 18:11 | NUR ---
Problems reprioritized. Patient report given, questions answered & plan of care reviewed with PRUDENCE RN.
[2022-07-09] MEDS ORDERED: magnesium hydroxide 30ml (MOM) UD suspension PO ONE (18:25)
--- NOTE | 2022-07-09 18:46 | NUR ---
Patient in room EMMA 358. I have received report from MAI PIERRE and had the opportunity to ask questions and assume patient care.
[2022-07-09] MEDS ORDERED: polyethylene glycol 3350 17gm powd pack PO SCH (21:00)
[2022-07-09] MEDS: insulin glargine (Lantus) pen - multi-dose SQ SCH (21:00)
[2022-07-09 22:00] VITALS: BP 112/49
[2022-07-09] MEDS: atorvastatin 20mg tablet PO SCH (22:05)
[2022-07-10] MEDS: potassium CL 20mEq in D5-1/2NS 1,000 ML IV SCH (04:01)
--- NOTE | 2022-07-10 06:11 | NUR ---
Problems reprioritized. Patient report given, questions answered & plan of care reviewed with MAI PIERRE.
[2022-07-10 06:42] LABS: BASOPHILS % (AUTO) 0.6 % (0-1); EOSINOPHILS # (AUTO) 0.3 X10'3 (0-0.9); HEMATOCRIT 27.5 % (35.0-45.0); HEMOGLOBIN 9.6 g/dl (12.0-16.0); LYMPHOCYTES # (AUTO) 0.3 X10'3 (1.1-4.8); LYMPHOCYTES % (AUTO) 8.2 % (21-51); MEAN CORPUSCULAR HGB CONC 34.8 g/dL (33.0-36.5); MEAN CORPUSCULAR VOLUME 103.4 FL (78-98); MEAN PLATELET VOLUME 7.4 FL (7.4-10.4); MONOCYTES # (AUTO) 0.3 X10'3 (0-0.9); MONOCYTES % (AUTO) 8.4 % (2-12); NEUTROPHILS # (AUTO) 3.1 X10'3 (1.8-7.7); NEUTROPHILS % (AUTO) 75.8 % (42-75); PLATELET COUNT 219 X10'3 (140-440); RED BLOOD COUNT 2.66 X10'6 (4.20-5.60); RED CELL DISTRIBUTION WIDTH 13.6 % (11.5-14.5); WHITE BLOOD COUNT 4.2 X10'3 (4.5-11.0)
[2022-07-10 07:00] VITALS: BP 103/49
[2022-07-10 07:02] LABS: ALBUMIN 2.9 G/DL (3.4-5.0); ANION GAP 3 (8-16); BLOOD UREA NITROGEN 6 MG/DL (7-18); BUN/CREATININE RATIO 7.1 (6.6-38.0); C-REACTIVE PROTEIN 0.71 MG/DL (0.0-0.5); CALCIUM 9.3 MG/DL (8.5-10.1); CHLORIDE 108 MMOL/L (99-107); CREATININE 0.84 MG/DL (0.40-0.90); GLUCOSE 106 MG/DL (70-104); POTASSIUM 3.9 MMOL/L (3.5-5.1); SODIUM 143 MMOL/L (135-145); TOTAL CARBON DIOXIDE 31.8 MMOL/L (24-32); eGFR 69 ML/MIN
[2022-07-10 11:00] VITALS: BP 97/66
--- NOTE | 2022-07-10 13:55 | NUR ---
PATIENT STABLE AND APPROPRIATE FOR DISCHARGE HOME. IV REMOVED, ALL BELONGINGS TAKEN FROM ROOM. NO NEW RX. ALL DISCHARGE INSTRUCTIONS AND EDUCATION GIVEN AND REVIEWED WITH PATIENT AND HER WHO WAS TRANSLATING FOR HER AT BEDSIDE. ALL QUESTIONS ANSWERED.
== END 2022-07-10 13:53 | disposition home or self-care (01) | DRG 330 ==
LOC: PAS IN 05:43 → UNDOADMIN 05:43 → SUR 3N 12:03
PROVIDERS: ADMIT Colon & Rectal Surgery; ATTEND Colon & Rectal Surgery
PROC: 0DB80ZZ Excision of Small Intestine, Open Approach (ICD-10-PCS; 2022-07-06)
PROC: 0DBB0ZZ Excision of Ileum, Open Approach (ICD-10-PCS; principal; 2022-07-06 07:41)
DX: Z43.2 Encounter for attention to ileostomy (principal); C20 Malignant neoplasm of rectum; R71.0 Precipitous drop in hematocrit; K21.9 Gastro-esophageal reflux disease without esophagitis; T40.605A Adverse effect of unspecified narcotics, initial encounter; Y92.230 Patient room in hospital as the place of occurrence of the external cause; E11.9 Type 2 diabetes mellitus without complications; J45.909 Unspecified asthma, uncomplicated; R11.0 Nausea; E87.6 Hypokalemia
CPT/HCPCS: Z7506; Z7508; 36415; 80048; 80053; 82948; 83036; 85025; 86140; 86885; 86900; 86901; 87081; 94640; 94760; 97116; 97161; 97530; A4615; A4618; A7000; C1758; G0378; J0694; J1644; J1815; J2250; J2270; J2405; J2704; J3010; J3260; J3480; J3490; J7040; J7120